=== PATIENT | male | born 1975 | race Two or more races ===

== ENCOUNTER 2016-09-09 00:29 | Emergency (ER) | payer SELFPAY ==
[~2016-09-09] VITALS: Ht 180.3 cm; Wt 106.6 kg
[2016-09-09 01:11] LABS: BASO # 0.1 x10^3/uL (0.0-0.2); BASO % 1 % (0-3); EOS % 2 % (0-3); HEMATOCRIT 48.5 % (39.0-53.0); HEMOGLOBIN 16.1 g/dL (13.0-17.5); LYMPH # 2.9 x10^3/uL (1.0-4.8); LYMPH % 21 % (24-48); MEAN CORPUSCULAR HEMOGLOBIN 29 pg (25-35); MEAN CORPUSCULAR HGB CONC 33 g/dL (31-37); MEAN CORPUSCULAR VOLUME 86 fL (79-100); MONO % 4 % (0-9); NEUT % 73 % (31-73); PLATELET COUNT 227 x10^3/uL (140-400); RED BLOOD COUNT 5.65 x10^6/uL (4.30-5.70); RED CELL DISTRIBUTION WIDTH 13.7 % (11.5-14.5); WHITE BLOOD COUNT 13.7 x10^3/uL (4.0-11.0)
[2016-09-09] MEDS ORDERED: KETOROLAC TROMETHAMINE 30 MG/ML INJ. IV ONE (01:15)
[2016-09-09] MEDS ORDERED: LIDO:MAALOX:DONNATAL 1:1:1 15 ML SINGLE DOSE SWSW ONE (01:15)
[2016-09-09] MEDS ORDERED: ONDANSETRON PF 4 MG/2 ML VIAL. IV ONE (01:15)
[2016-09-09 01:20] LABS: CREATININE 1.1 mg/dL (0.7-1.3); GFR 73.4; POTASSIUM 3.6 mmol/L (3.5-5.1)
[2016-09-09 01:26] LABS: ALBUMIN 4.1 g/dL (3.4-5.0); ALBUMIN/GLOBULIN RATIO 1.1 (1.0-1.7); TOTAL BILIRUBIN 0.3 mg/dL (0.2-1.0); TOTAL PROTEIN 7.8 g/dL (6.4-8.2)
[2016-09-09 02:26] LABS: BILIRUBIN,URINE NEGATIVE (NEG); GLUCOSE,URINE 100 mg/dL (NEG); NITRITE,URINE NEGATIVE (NEG); PH,URINE 5.5; PROTEIN,URINE NEGATIVE (NEG-TRACE); UROBILINOGEN,URINE 0.2 mg/dL (0.2 mg/dL)
[2016-09-09 02:32] LABS: BACTERIA,URINE 0 /HPF (0-FEW); RBC,URINE 0 /HPF (0-2); WBC,URINE 0 /HPF (0-4)
[2016-09-09 02:33] LABS: SQUAMOUS EPITHELIAL CELL,UR OCC /LPF
[2016-09-09] MEDS: fentaNYL PF VIAL 100 MCG/2 ML VIAL IV PRN ×2 (02:38→03:37)
[2016-09-09] MEDS ORDERED: CONTRAST GIVEN MC PRN (02:45)
[2016-09-09] MEDS ORDERED: IOHEXOL 300 MG/ML 75 ML VIAL IV ONE (03:00)
--- NOTE | 2016-09-09 03:25 | RAD ---
PROCEDURE CT abdomen pelvis with contrast HISTORY Abdominal pain greater the left upper quadrant TECHNIQUE After IV infusion of95 cc of Optiray-320, helical CT scanning of the abdomen and pelvis was performed.GI contrast was not administered. FINDINGS The liveer is homogeous in appearance and normal in size. The spleen is unremarkable and normal in size. The pancreas is homogeneous in appearance and no focal enlargement is seen. The gallbladder appears normal and no intra or extrahepatic biliary ductal dilatation is seen. No focal aneurysmal dilatation of the abdominal aorta is seen. No enlarged abdominal or pelvic lymphadenopathy is seen. No soft tissue mass is seen. No obstructive bowel pattern or bowel wall thickening or inflammatory change is seen. No free intraperitoneal fluid or abscess or free intraperitoneal air is seen. The lung bases are clear. [The urinary bladder is collapsed and not well evaluated. The kidneys appear normal. No adrenal masses are seen. No osteolytic process is seen. The appendix is normal. IMPRESSION No significant CT abnormality of the abdomen or the pelvis is seen. PQRS Statement: One or more of the following individualized dose reduction techniques were utilized for this study: 1. Automated exposure control. 2. Adjustment of the mA and/or kV according to patient size. 3. Use of iterative reconstruction technique. Electronically signed by: Herman Somers MD (September 09, 2016 03:23:16)
[2016-09-09 03:30] VITALS: BP 109/63
[2016-09-09] MEDS ORDERED: RANI150T6 PO (03:50)
--- NOTE | 2016-09-09 03:50 | PHYS DOC ---
Past Medical History Past Medical History: No Pertinent History Past Surgical History: No Surgical History Alcohol Use: Occasionally Additional Information: DRINKS ON WEEKENDS, STATES ONE BEER TODAY Drug Use: None Adult General Chief Complaint Chief Complaint: ABDOMINAL PAIN HPI HPI Patient is a 41 year old male who presents with abdominal pain. The patient reports onset of pain about 90 minutes ago to left upper quadrant and epigastrium. Denies fevers or chills, nausea or vomiting, diarrhea or constipation, hematemesis, hematochezia or melena, dysuria or hematuria. Denies previous history of similar symptoms. No history of abdominal surgeries. Reports that he drinks alcohol on the weekends, 1 beer today, no heavy drinking this weekend. Review of Systems Review of Systems Constitutional: Denies fever or chills HENT: Denies nasal congestion or sore throat Respiratory: Denies cough or shortness of breath Cardiovascular: Denies chest pain or edema GI: Reports abdominal pain, denies nausea, vomiting, bloody stools or diarrhea : Denies dysuria or hematuria Musculoskeletal: Denies back pain or joint pain Integument: Denies rash or skin lesions Neurologic: Denies headache Current Medications Current Medications Current Medications Medications (Trade) Dose Ordered Sig/Stephanie Start Time Stop Time Status Last Admin Dose Admin Fentanyl Citrate (Fentanyl 2ml Vial) 50 mcg PRN Q15MIN PRN 09/09/16 02:30 09/09/16 04:04 DC 09/09/16 03:37 50 MCG Info (Do NOT chart on this entry -- for MONITORING) 1 each PRN DAILY PRN 09/09/16 02:45 09/09/16 04:04 DC Iohexol (Omnipaque 300 Mg/ml) 75 ml 1X ONCE 09/09/16 03:00 09/09/16 03:01 DC 09/09/16 02:51 75 ML Ketorolac Tromethamine (Toradol) 30 mg 1X ONCE 09/09/16 01:15 09/09/16 01:16 DC 09/09/16 01:14 30 MG Multi-Ingredient Mouthwash/Gargle (Gi Cocktail Single Dose) 15 ml 1X ONCE 09/09/16 01:15 09/09/16 01:16 DC 09/09/16 01:14 15 ML Ondansetron HCl (Zofran) 4 mg 1X ONCE 09/09/16 01:15 09/09/16 01:16 DC 09/09/16 01:14 4 MG Allergies Allergies Allergies Coded Allergies Type Severity Reaction Last Updated Verified No Known Drug Allergies 09/09/16 No Physical Exam Physical Exam Constitutional: Obese, no acute distress, non-toxic appearance. HENT: Normocephalic, atraumatic, bilateral external ears normal, oropharynx moist, nose normal. Eyes: PERRLA, EOMI, conjunctiva normal, no discharge. Neck: supple, no stridor. Cardiovascular: RRR, no murmurs, no edema. Lungs & Thorax: LCTAB, no wheezing, no respiratory distress. Abdomen: Normal bowel sounds, soft, epigastric and left upper quadrant tenderness without rebound or guarding, no right upper quadrant or right lower quadrant tenderness, no masses or pulsatile masses, nondistended. Skin: Warm, dry, no erythema, no rash. Back: No CVA tenderness. Extremities: No tenderness, no edema. Neurologic: Alert and oriented X 3, no focal deficits noted. Psychologic: Affect normal, judgement normal, mood normal. Current Patient Data Vital Signs Vital Signs Date Time Temp Pulse Resp B/P Pulse Ox O2 Delivery O2 Flow Rate FiO2 09/09/16 03:30 65 109/63 97 Room Air 09/09/16 00:45 97.4 16 97.4 Lab Values Laboratory Tests Test 09/09/16 00:43 09/09/16 02:08 White Blood Count 13.7x10^3/uL (4.0-11.0) H Red Blood Count 5.65x10^6/uL (4.30-5.70) Hemoglobin 16.1g/dL (13.0-17.5) Hematocrit 48.5% (39.0-53.0) Mean Corpuscular Volume 86fL (79-100) Mean Corpuscular Hemoglobin 29pg (25-35) Mean Corpuscular Hemoglobin Concent 33g/dL (31-37) Red Cell Distribution Width 13.7% (11.5-14.5) Platelet Count 227x10^3/uL (140-400) Neutrophils (%) (Auto) 73% (31-73) Lymphocytes (%) (Auto) 21% (24-48) L Monocytes (%) (Auto) 4% (0-9) Eosinophils (%) (Auto) 2% (0-3) Basophils (%) (Auto) 1% (0-3) Neutrophils # (Auto) 9.9x10^3uL (1.8-7.7) H Lymphocytes # (Auto) 2.9x10^3/uL (1.0-4.8) Monocytes # (Auto) 0.6x10^3/uL (0.0-1.1) Eosinophils # (Auto) 0.2x10^3/uL (0.0-0.7) Basophils # (Auto) 0.1x10^3/uL (0.0-0.2) Sodium Level 137mmol/L (136-145) Potassium Level 3.6mmol/L (3.5-5.1) Chloride Level 101mmol/L (98-107) Carbon Dioxide Level 29mmol/L (21-32) Anion Gap 7 (6-14) Blood Urea Nitrogen 14mg/dL (8-26) Creatinine 1.1mg/dL (0.7-1.3) Estimated GFR (Cockcroft-Gault) 73.4 BUN/Creatinine Ratio 13 (6-20) Glucose Level 138mg/dL (70-99) H Calcium Level 9.0mg/dL (8.5-10.1) Total Bilirubin 0.3mg/dL (0.2-1.0) Aspartate Amino Transferase (AST) 27U/L (15-37) Alanine Aminotransferase (ALT) 60U/L (16-63) Alkaline Phosphatase 64U/L (46-116) Total Protein 7.8g/dL (6.4-8.2) Albumin 4.1g/dL (3.4-5.0) Albumin/Globulin Ratio 1.1 (1.0-1.7) Lipase 134U/L (73-393) Urine Collection Type Unknown Urine Color Yellow Urine Clarity Turbid Urine pH 5.5 Urine Specific [place] >=1.030 Urine Protein Negativemg/dL (NEG-TRACE) Urine Glucose (UA) 100mg/dL (NEG) Urine Ketones (Stick) Negativemg/dL (NEG) Urine Blood Negative (NEG) Urine Nitrite Negative (NEG) Urine Bilirubin Negative (NEG) Urine Urobilinogen Dipstick 0.2mg/dL (0.2 mg/dL) Urine Leukocyte Esterase Negative (NEG) Urine RBC 0/HPF (0-2) Urine WBC 0/HPF (0-4) Urine Squamous Epithelial Cells Occ/LPF Urine Amorphous Sediment Present/HPF Urine Bacteria 0/HPF (0-FEW) Urine Mucus Mod/LPF Laboratory Tests 09/09/16 00:43 Laboratory Tests 09/09/16 00:43 EKG EKG [] Radiology/Procedures Radiology/Procedures PROCEDURE: CT ABD PELV W/ IV CONTRST ONLY PROCEDURE CT abdomen pelvis with contrast HISTORY Abdominal pain greater the left upper quadrant TECHNIQUE After IV infusion of95 cc of Optiray-320, helical CT scanning of the abdomen and pelvis was performed.GI contrast was not administered. FINDINGS The liveer is homogeous in appearance and normal in size. The spleen is unremarkable and normal in size. The pancreas is homogeneous in appearance and no focal enlargement is seen. The gallbladder appears normal and no intra or extrahepatic biliary ductal dilatation is seen. No focal aneurysmal dilatation of the abdominal aorta is seen. No enlarged abdominal or pelvic lymphadenopathy is seen. No soft tissue mass is seen. No obstructive bowel pattern or bowel wall thickening or inflammatory change is seen. No free intraperitoneal fluid or abscess or free intraperitoneal air is seen. The lung bases are clear. [The urinary bladder is collapsed and not well evaluated. The kidneys appear normal. No adrenal masses are seen. No osteolytic process is seen. The appendix is normal. IMPRESSION No significant CT abnormality of the abdomen or the pelvis is seen. PQRS Statement: One or more of the following individualized dose reduction techniques were utilized for this study: 1. Automated exposure control. 2. Adjustment of the mA and/or kV according to patient size. 3. Use of iterative reconstruction technique. Electronically signed by: Damaris Cortez MD (September 09, 2016 03:23:16) DICTATED and SIGNED BY: DAMARIS CORTEZ III, MD DATE: 09/09/16 0323 [] Course & Med Decision Making Course & Med Decision Making Pertinent Labs and Imaging studies reviewed. (See chart for details) The patient presents with abdominal pain. Gave pain medication here. Obtained labs. Reassess the patient. He had significant ongoing pain. Additional pain medication prescribed. Obtained CT which showed no evidence of acute intra- abdominal process. Discussed with the patient, likely gastritis. Recommend rest , by mouth hydration with clear liquids, try Zantac, avoid alcohol consumption. Follow-up as needed with Dr. Meraz in the primary care clinic in about 2-3 days if not improving, also follow-up with Dr. Blankenship in the GI clinic in about one week. Return to the emergency department for high fever, severe pain, uncontrolled vomiting, blood in emesis or stools, any otherwise worsening condition. Discharged home in stable and improved condition. [] Dragon Disclaimer Dragon Disclaimer This electronic medical record was generated, in whole or in part, using a voice recognition dictation system. Departure Departure Impression: Primary Impression: Abdominal pain Disposition: HOME, SELF-CARE Condition: STABLE Referrals: NO PCP (PCP) ANASTASIA MERAZ MD,JOE Garay MD Patient Instructions: Abdominal Pain, Qnpk-hw-Hdkg, Gastritis, Adult, Easy-to- Read Additional Instructions: You were seen in the emergency department today for abdominal pain. Tests here did not show a serious cause of symptoms. This may be related to gastritis which is irritation of the stomach. Please rest, drink clear liquids to stay hydrated, take Zantac to help with symptoms, avoid alcohol consumption. Follow- up with Dr. Meraz in the primary care clinic if not improving in 2-3 days. Also consider follow-up in GI clinic with Dr. Blankenship. Return to the emergency department for high fever, severe pain, uncontrolled vomiting, blood in vomit or stools, any otherwise worsening condition. Discharged home in stable Scripts Ranitidine Hcl (Zantac)150 Mg [id number] Mg PO DAILY #15 TAB Prov:SEAN KEATING MD 09/09/16 SEAN KEATING MD September 09, 2016 03:50
== END 2016-09-09 04:02 | disposition home or self-care (01) ==
LOC: ER 00:29
DX: R10.12 Left upper quadrant pain (principal); R10.13 Epigastric pain; E66.9 Obesity, unspecified; Z68.32 Body mass index [BMI] 32.0-32.9, adult
CPT/HCPCS: 36415; 74177; 80053; 81001; 83690; 85027; 96374; 96375; 96376; 99285; J1885; J2405; J3010; Q9967